=== PATIENT | male | born 1980 | race Caucasian/White ===

== ENCOUNTER 2023-09-23 01:52 | Emergency (ER) | payer SELFPAY ==
[2023-09-23 02:05] VITALS: BP 142/90; PULSE 85; RESP 16; TEMP 97.6; BMI 27.8
[2023-09-23] MEDS ORDERED: DIPHTH,PERTUSS(ACELL),TET 0.5 ML DISP.SYRIN IM ONE (02:16)
[2023-09-23] MEDS: DIPHTH,PERTUSS(ACELL),TET 0.5 ML DISP.SYRIN IM ONE (02:17)
[2023-09-23] MEDS ORDERED: BACITRACIN ZINC 15 GM TUBE TOPICAL OINTMENT ONE (03:00)
[2023-09-23] MEDS: BACITRACIN ZINC 15 GM TUBE TOPICAL OINTMENT TP ONE (03:02)
== END 2023-09-23 03:03 | disposition home or self-care (01) ==
LOC: JER 01:52
PROC: 3E0234Z Introduction of Serum, Toxoid and Vaccine into Muscle, Percutaneous Approach (ICD-10-PCS; principal; 2023-09-23)
DX: S60.221A Contusion of right hand, initial encounter (principal); M79.641 Pain in right hand; R51.9 Headache, unspecified; Y04.8XXA Assault by other bodily force, initial encounter
CPT/HCPCS: 73130-TC-LT-FY; 73130-TC-RT-FY; 90715; 99283-25